=== PATIENT | female | born 1975 | race Caucasian/White ===

== ENCOUNTER → 2020-05-05 13:06 | Outpatient (CLI) | payer OTHER, SELFPAY ==
[2020-05-06 23:57] LABS: COVID19 Sendout Not Detected (Not Detect)
== END ==
PROVIDERS: Visit Provider Physician Assistant
DX: Z11.59 Encounter for screening for other viral diseases (principal)
CPT/HCPCS: 87635

== ENCOUNTER → 2021-01-17 09:36 | Outpatient (CLI) | payer OTHER, SELFPAY ==
--- NOTE | 2021-01-17 | DI.US.S_ITS ---
PROCEDURE: US ABDOMEN LIMITED INDICATIONS: ABD PAIN TECHNIQUE: Real-time focused scanning was performed of the abdomen, with image documentation. COMPARISON: None. FINDINGS: Liver is normal in size and echotexture. Gallbladder is sonographically normal. No gallstones. No gallbladder wall thickening. Gallbladder wall measures 1.0 millimeters. No pericholecystic fluid. No sonographic Cox sign. Biliary tree is nondilated. Common bile duct measures 5.7 millimeters. Head and body of the pancreas are sonographically normal. Tail is partially obscured by bowel gas. IMPRESSION: No sonographic abnormality identified. Dictated by: Osiris Huang MD, PhD on 01/17/2021 at 11:59 Approved by: Osiris Huang MD, PhD on 01/17/2021 at 12:00
== END ==
PROVIDERS: PCP Internal Medicine; Referring Provider Internal Medicine; Visit Provider Internal Medicine
DX: R10.9 Unspecified abdominal pain (principal)
CPT/HCPCS: 76705

== ENCOUNTER 2021-01-20 12:23 | Emergency (ER) | payer OTHER, SELFPAY ==
[2021-01-20 12:34] VITALS: BP 158/82; PULSE 81; RESP 14; TEMP 36.4; O2SAT 99
--- NOTE | 2021-01-20 12:40 | DI.RAD.S_ITS ---
PROCEDURE: XR CHEST 1V INDICATIONS: chest pain TECHNIQUE: One view of the chest was acquired. COMPARISON: None. FINDINGS: Surgical changes and devices: None. Lungs and pleura: Lungs are clear. No pleural effusions or pneumothorax. Mediastinum: Mediastinal contours appear normal. Heart size is normal. Bones and chest wall: No suspicious bony lesions. Overlying soft tissues appear unremarkable. IMPRESSION: Normal for age, source of current chest pain symptoms is not seen. Dictated by: Kenton Alvarez M.D. on 01/20/2021 at 13:47 Approved by: Kenton Alvarez M.D. on 01/20/2021 at 13:47
[2021-01-20 13:24] LABS: Add Manual Diff / Slide Review NO; Basophils Absolute Auto 0 /uL (0-100); Basophils Percent Auto 0.5 % (0-2); Eosinophils Absolute Auto 400 /uL (0-450); Eosinophils Percent Auto 6.4 % (2-4); Hematocrit 40.5 % (36-46); Hemoglobin 13.2 g/dL (12.0-16.0); Lymphocytes Absolute Auto 1500 /uL (1100-4500); Lymphocytes Percent Auto 26.2 % (25-40); Mean Corpuscular HGB Conc 32.7 % (30-36); Mean Corpuscular Hemoglobin 29.4 PG (26-34); Monocytes Absolute Auto 400 /uL (0-900); Monocytes Percent Auto 6.7 % (3-14); Neutrophils Absolute Auto 3400 /uL (1500-7000); Neutrophils Percent Auto 60.2 % (50-75); Platelet Count 323 X10^3/uL (150-400); White Blood Cell Count 5.7 X10^3/uL (4.5-11.0)
[2021-01-20 13:29] LABS: Alanine Aminotransferase 8 IU/L (<35); Albumin 4.8 g/dL (3.5-5.0); Albumin Globulin Ratio 1.5 (1.0-2.8); Alkaline Phosphatase 65 U/L (38-126); Aspartate Aminotransferase 28 IU/L (14-36); BUN Creatinine Ratio 20.5 (6-22); Bilirubin Total 0.6 mg/dL (0.2-1.3); Blood Urea Nitrogen 9 mg/dL (7-17); Carbon Dioxide 27 mmol/L (22-32); Chloride 104 mmol/L (98-107); Creatine Kinase 113 U/L (30-135); Estimated Glomerular Filt Rate > 60.0 mL/min (>60); Globulin 3.3 g/dL (1.7-4.1); Glucose 96 mg/dL (70-100); Lipase 73 U/L (23-300); Potassium 4.3 mmol/L (3.4-5.1); Sodium 140 mmol/L (137-145); Total Protein 8.1 g/dL (6.3-8.2)
[2021-01-20 13:41] LABS: Troponin I < 0.012 ng/mL (0.01-0.034)
[2021-01-20 13:45] LABS: CKMB % Relative Index 0.4 % (1.5-5.0); Creatine Kinase MB 0.49 ng/mL (<2.37); HEMOLYSIS 17 (0-50)
[2021-01-20 14:06] LABS: TSH w/ Reflex to FT4 0.56 uIU/mL (0.47-4.68)
--- NOTE | 2021-01-20 15:12 | ED.CHESTPAIN ---
HPI - Chest Pain General Chief Complaint: Chest Pain Stated Complaint: possible heart attack last night Time Seen by Provider: 01/20/21 15:04 Source: patient Mode of arrival: Wheelchair Limitations: no limitations History of Present Illness HPI narrative: Patient is a 45-year-old female with history of IBS, endometriosis presenting today with chest discomfort. She says it was actually quite bad last evening around 7:00 p.m.. She felt it was very tight. She took an antacid ibuprofen and Percocet it she said it eventually did help. However she was quite worried about this morning. She no longer has any chest discomfort. She denies any palpitations or shortness of breath. She does have a history of an abdominal hernia which she says was repaired. She has had intermittent abdominal discomfort which is being worked up as an outpatient. She recently had her right upper quadrant ultrasound under should not show any abnormality. She is not complaining of abdominal discomfort today. More concerned about her chest pain last night. She said she also had another episode few days ago when she picked up a 5 lb box. She has no known coronary artery disease, her uncle had an DE eye but other family members are healthy she is not a smoker and has no other risk factors Related Data Allergies Allergy/AdvReac Type Severity Reaction Status Date / Time No Known Drug Allergies Allergy Verified 01/20/21 12:40 Review of Systems Review of Systems Narrative: GENERAL: Denies chills, fatigue, malaise, fever, sweats, travel HEENT: Denies sinus pain, ear pain, sore throat, difficulty swallowing, neck pain RESPIRATORY: Denies dyspnea, cough, wheezing, hemoptysis, sputum. CARDIOVASCULAR: See HPI GASTROINTESTINAL: Denies nausea, vomiting, abdominal pain, diarrhea, constipation, melena. : Denies dysuria, frequency, incontinence, hematuria, urinary retention, flank pain. MUSCULOSKELETAL: Denies weakness, joint pain, or bony pain SKIN: No rash, no erythema, no pruritus NEUROLOGIC: Denies weakness, dizziness, headache, numbness, change in speech, confusion PSYCHIATRIC: No concerning psychosocial issues. 12 point review of systems is negative except for those stated above and HPI Patient History Social History Smoking Status: Never smoker Smoking Status: Never smoker alcohol intake frequency: a few times a month Substance Use Type: does not use Exam Initial Vital Signs Initial Vital Signs: Vital Signs Temperature 97.6 F 01/20/21 12:34 Pulse Rate 81 01/20/21 12:34 Respiratory Rate 14 01/20/21 12:34 Blood Pressure 158/82 H 01/20/21 12:34 Pulse Oximetry 99 01/20/21 12:34 GENERAL: Well-appearing, well-nourished and in no acute distress. HEENT: Head atraumatic,EOMI, pupils reactive, face symmetric, moist mucous membranes CARDIOVASCULAR: Regular rate and rhythm without murmurs, rubs or gallops. RESPIRATORY: Breath sounds equal bilaterally, no wheezes rales or rhonchi. ABDOMEN: Soft, nontender. Normoactive bowel sounds all 4 quadrants. No guarding or rebound : No CVA tenderness EXTREMITIES: Normal range of motion, no clubbing or edema. Neurovascularly intact NEUROLOGICAL: Alert and oriented x4.Normal gait and speech. SKIN: Warm, dry, no laceration, no petechiae, no rashes or lesions. Scores HEART Score Heart Score history: Slightly Suspicious Heart Score EKG: Normal Heart Score Age: 45-64 years old Heart Score risk factors: No known risk factors Heart Score troponin: < or = to normal limit Heart Score Total: 1 PERC Score Age greater than or equal to 50 years: No Heart rate greater than or equal to 100 bpm: No Room Air O2 Sat less than 95%: No Unilateral leg swelling: No Recent trauma or surgery: No Hemoptysis: No Prior PE or DVT: No Hormone Use: No Total PERC Score: 0 Course Orders Ordered: ED Orders 01/20/21 12:40 XR chest 1V Stat EKG-12 Lead Stat 01/20/21 13:00 Complete Blood Count AUTO DIFF Stat Comprehensive Metabolic Panel Stat Lipase Stat Magnesium Stat TSH w/ Reflex to FT4 Stat Troponin & CK Cardiac Panel Stat Vital Signs Vital signs: Vital Signs - 8 hr 01/20/21 12:34 01/20/21 15:33 Temperature 97.6 F Pulse Rate 81 78 Respiratory Rate 14 19 Blood Pressure 158/82 H 126/82 Pulse Oximetry 99 97 MDM - Chest Pain Lab Data Result diagrams: 01/20/21 13:00 01/20/21 13:00 Labs: Lab Results 01/20/21 01/20/21 01/20/21 Range/Units 13:00 13:00 13:00 WBC 5.7 (4.5-11.0) X10^3/uL RBC 4.50 (4.0-5.2) X10^6/uL Hgb 13.2 (12.0-16.0) g/dL Hct 40.5 (36-46) % MCV 90.0 (80-100) fL MCH 29.4 (26-34) PG MCHC 32.7 (30-36) % RDW 13.0 (11.6-14.8) % Plt Count 323 (150-400) X10^3/uL Neut % (Auto) 60.2 (50-75) % Lymph % (Auto) 26.2 (25-40) % [place] % (Auto) 6.7 (3-14) % Eos % (Auto) 6.4 H (2-4) % Baso % (Auto) 0.5 (0-2) % Neut # (Auto) 3400 (8971-1546) /uL Lymph # (Auto) 1500 (1488-9324) /uL [place] # (Auto) 400 (0-900) /uL Eos # (Auto) 400 (0-450) /uL Baso # (Auto) 0 (0-100) /uL Sodium 140 (137-145) mmol/L Potassium 4.3 (3.4-5.1) mmol/L Chloride 104 (98-107) mmol/L Carbon Dioxide 27 (22-32) mmol/L BUN 9 (7-17) mg/dL Creatinine 0.44 L (0.52-1.04) mg/dL Estimated GFR > 60.0 (>60) mL/min BUN/Creatinine Ratio 20.5 (6-22) Glucose 96 (70-100) mg/dL Calcium 10.0 (8.4-10.2) mg/dL Magnesium 2.0 (1.6-2.3) mg/dL Total Bilirubin 0.6 (0.2-1.3) mg/dL AST 28 (14-36) IU/L ALT 8 (<35) IU/L Alkaline Phosphatase 65 (38-126) U/L Total Creatine Kinase 113 (30-135) U/L CK-MB (CK-2) 0.49 (<2.37) ng/mL CK-MB (CK-2) Rel Index 0.4 L (1.5-5.0) % Troponin I < 0.012 (0.01-0.034) ng/mL Total Protein 8.1 (6.3-8.2) g/dL Albumin 4.8 (3.5-5.0) g/dL Globulin 3.3 (1.7-4.1) g/dL Albumin/Globulin Ratio 1.5 (1.0-2.8) Lipase 73 (23-300) U/L TSH (0.47-4.68) uIU/mL 01/20/21 Range/Units 13:00 WBC (4.5-11.0) X10^3/uL RBC (4.0-5.2) X10^6/uL Hgb (12.0-16.0) g/dL Hct (36-46) % MCV (80-100) fL MCH (26-34) PG MCHC (30-36) % RDW (11.6-14.8) % Plt Count (150-400) X10^3/uL Neut % (Auto) (50-75) % Lymph % (Auto) (25-40) % [place] % (Auto) (3-14) % Eos % (Auto) (2-4) % Baso % (Auto) (0-2) % Neut # (Auto) (3449-1098) /uL Lymph # (Auto) (7324-1077) /uL [place] # (Auto) (0-900) /uL Eos # (Auto) (0-450) /uL Baso # (Auto) (0-100) /uL Sodium (137-145) mmol/L Potassium (3.4-5.1) mmol/L Chloride (98-107) mmol/L Carbon Dioxide (22-32) mmol/L BUN (7-17) mg/dL Creatinine (0.52-1.04) mg/dL Estimated GFR (>60) mL/min BUN/Creatinine Ratio (6-22) Glucose (70-100) mg/dL Calcium (8.4-10.2) mg/dL Magnesium (1.6-2.3) mg/dL Total Bilirubin (0.2-1.3) mg/dL AST (14-36) IU/L ALT (<35) IU/L Alkaline Phosphatase (38-126) U/L Total Creatine Kinase (30-135) U/L CK-MB (CK-2) (<2.37) ng/mL CK-MB (CK-2) Rel Index (1.5-5.0) % Troponin I (0.01-0.034) ng/mL Total Protein (6.3-8.2) g/dL Albumin (3.5-5.0) g/dL Globulin (1.7-4.1) g/dL Albumin/Globulin Ratio (1.0-2.8) Lipase (23-300) U/L TSH 0.56 (0.47-4.68) uIU/mL Imaging Data Chest x-ray: Radiologist's Impression: PROCEDURE: XR CHEST 1V INDICATIONS: chest pain TECHNIQUE: One view of the chest was acquired. COMPARISON: None. FINDINGS: Surgical changes and devices: None. Lungs and pleura: Lungs are clear. No pleural effusions or pneumothorax. Mediastinum: Mediastinal contours appear normal. Heart size is normal. Bones and chest wall: No suspicious bony lesions. Overlying soft tissues appear unremarkable. IMPRESSION: Normal for age, source of current chest pain symptoms is not seen. Dictated by: Kenton Alvarez M.D. on 01/20/2021 at 13:47 ECG Data Interpretation: 67 p.r. interval 196 QRS [address] changes or T-wave inversions no priors to compare MDM Narrative Medical decision making narrative: Patient is very low risk cardiac disease she has had symptoms ongoing for more than 12 hours. Workup today is negative. However I recommend she discuss with her primary care provider if she needs any further workup and to return to the emergency department if symptoms are worsening. She verbally understands and agrees with this plan Discharge Plan Departure Patient Disposition: Home Clinical Impression: Atypical chest pain Instructions: DI for Atypical Chest Pain Activity Restrictions/Additional Instructions: *You have been diagnosed with atypical chest pain *What to do: At this time is unclear what exactly is causing her chest pain however you do not meet criteria to stay in the hospital. You may require further in evaluation such as stress test and/or echocardiogram. You may also require CT for your abdominal pain. However at this time I do not feel any hernia *Continue to take medications as directed *Follow up with your primary care provider in 2-3 days *Return to ER if you should have worsening chest discomfort, shortness of breath, palpitations dizziness or lightheadedness or any new, worsening or concerning symptoms Referrals: Sameer Navarro MD [Primary Care Provider] -
[2021-01-20 15:33] VITALS: BP 126/82; PULSE 78; RESP 19; O2SAT 97
== END 2021-01-20 15:34 | disposition home or self-care (01) ==
PROVIDERS: Emergency Medicine; Emergency Provider Emergency Medicine; PCP Internal Medicine
DX: R07.89 Other chest pain (principal)
CPT/HCPCS: 36415; 71045; 80053; 82550; 82553; 83690; 83735; 84443; 84484; 85025; 93005; 99284

== ENCOUNTER → 2021-06-04 10:02 | Outpatient (CLI) | payer OTHER, SELFPAY ==
[2021-06-04 12:01] LABS: COVID19 -Nasal RAPID Negative (Negative)
== END ==
PROVIDERS: PCP Internal Medicine; Visit Provider Physician Assistant
DX: Z01.812 Encounter for preprocedural laboratory examination (principal); Z20.822 Contact with and (suspected) exposure to COVID-19
CPT/HCPCS: 87635

== ENCOUNTER 2021-06-05 09:54 | Day surgery (SDC) | payer OTHER, SELFPAY ==
--- NOTE | 2021-06-05 | PATH_ITS ---
[facility] Accession Number: [id number] . 01 Material submitted: . PART A: duodenum - BIOPSY DUODENUM PART B: stomach - BIOPSY ANTRUM . 02 Diagnosis: A. Biopsy Duodenum: Duodenal mucosa with no diagnostic abnormality. Negative for active inflammation, features of sprue, dysplasia, or malignancy. . B. Biopsy Antrum: Portions of gastric antral mucosa with mild chronic inflammation. Negative for Helicobacter organisms by immunohistochemistry. Negative for intestinal metaplasia. Negative for dysplasia or malignancy. MRV 06/08/2021 1313 Local . 02 Electronically signed: . Clarissa Domingo MD, Pathologist NPI- [id number] . 01 Gross description: . A. Received in formalin, labeled duodenum consists of three boyd-pink fragments of soft tissue measuring 0.5 x 0.4 x 0.2 cm in aggregate. The specimen is entirely submitted in cassette A1. B. Received in formalin, labeled antrum consists of two boyd-pink fragments of soft tissue measuring 0.3 x 0.2 x 0.2 cm in aggregate. The specimen is entirely submitted in cassette B1. (EA:[id number]) /MRV 06/06/2021 1242 Local . 02 Microscopic: . B. An immunohistochemical stain was performed to evaluate for Helicobacter organisms and is negative. The control stain showed appropriate reactivity. . * This test was developed and its performance characteristics determined by [employer]. It has not been cleared or approved by the U.S. Food and Drug Administration. The FDA has determined that such clearance or approval is not necessary. This test is used for clinical purposes. It should not be regarded as investigational or for research. . 02 Pathologist provided ICD-10: R13.10, R11.0, R10.84 . 02 CPT . 343514, 308102, G63561 Performed at: 01 [facility] [address] [id number] MD Alan Yadav MD Phone: [phone] Performed at: 02 [facility] [address] [place], [place] [id number] MD Pascale Nicholson MD Phone: [phone]
[2021-06-05 10:08] VITALS: BP 101/67; PULSE 78; RESP 16; TEMP 36.7; O2SAT 96; BMI 20.3
[2021-06-05] MEDS: SODIUM CHLORIDE 0.9% 1,000 ML 84 ML IV (10:41)
--- NOTE | 2021-06-05 10:41 | SUR.PREOP ---
Patient states will call in to work and will not work this afternoon. Dr. Lyle will provide note for patient to take to her employment.
--- NOTE | 2021-06-05 11:14 | PM.HP.1 ---
History of Present Illness History of Present Illness Date Patient Seen: 06/05/21 Time Patient Seen: 11:14 Chief complaint: SDC Narrative: I reviewed my note from April 30, 2021 no changes. Patient History Family & Social History Social History: household members spouse Tobacco & Substance use: Smoking Status Never smoker alcohol intake frequency a few times a month Substance Use Type does not use Meds Home Medications and Allergies Home Medications Medication Instructions Recorded Confirmed Type cyclobenzaprine 5 mg tablet 5 mg PO PRN PRN 06/05/21 06/05/21 History ibuprofen 200 mg PO PRN PRN 06/05/21 06/05/21 History oxycodone-acetaminophen 10 mg-325 tab 06/05/21 History mg tablet Allergies Allergy/AdvReac Type Severity Reaction Status Date / Time No Known Drug Allergies Allergy Verified 06/05/21 10:36 Review of Systems Review of Systems ROS: Yes All systems reviewed with the patient and are negative except as otherwise documented Exam Vital Signs (past 8 hours): - 06/05/21 10:08 Temperature 98.0 F Pulse Rate 78 Respiratory Rate 16 Blood Pressure 101/67 Pulse Oximetry 96 Oxygen Delivery Method Room Air Const General: cooperative and comfortable Orientation: alert HENMT Head: normocephalic Ears: external ears normal Nose: external nose normal Face and sinus: normal facial exam Eyes General: appearance normal, both eyes and all related structures Neck Neck: normal visual inspection Chest Chest: normal inspection of the chest Resp Effort & Inspection: normal respiratory effort Cardio Rate: regular rate GI Inspection: normal to inspection Skin General: no rashes or lesions noted and No jaundice Neuro General: patient alert and moves all extremities Cognition: normal cognition Speech: speech normal Extrem General: normal to inspection Psych Appearance: grossly normal Assessment & Plan Assessment & Plan narrative: Epigastric pain nausea weight loss black stools and reflux. EGD is planned for today. Time Spent With Patient Critical Care time: I spent a total of [] minutes of critical care time on this patient's care today; this time is exclusive of procedural time.
--- NOTE | 2021-06-05 11:17 | PM.PREOP ---
Pre-operative Note COVID-19 COVID-19 status: Negative Result date/Date tested (Pos, Neg/Pending): 06/04/21 Interval Note History & Physical reviewed/Exam performed by Physician: Yes Changes to H&P: No ASA Class (for procedural sedation): II
--- NOTE | 2021-06-05 12:17 | P.OP.EGD_ITS ---
Operative Date/Time/Diagnoses Date of procedure: 06/05/21 Time of procedure: 12:17 Pre-op diagnosis: Epigastric pain nausea melena GERD Post-op diagnosis: same Procedure & Clinicians Study performed: EGD with biopsies Same procedure as scheduled: Yes Indications: Epigastric pain nausea melena GERD Surgeon: Rod Lyle Procedure Notes SCOAP/Timeout: Done Procedure in detail: After the risks and benefits were explained, written and verbal informed consent was obtained. The patient was brought into the procedure room and placed into the left lateral decubitus position. Please see nurse assisted living care manager notes for sedation details. The scope was introduced into the mouth through the bite block and advanced under direct visualization to the 2nd portion of the duodenum. The scope was slowly withdrawn carefully examining the mucosa for any defects or lesions. Retroflexed views were accomplished in the stomach. The stomach was decompressed, the scope was then removed from the patient who tolerated the procedure well. Sedation minutes: 10 Complications: none Impression: 1. Duodenum this was visually unremarkable from the bulb through the 2nd portion. However because the patient reported weight loss, we took random D2 biopsies 2. Stomach: Patient had streaky erythema in the antrum and biopsies were acquired for exclusion of Helicobacter pylori or other pathology. No ulcers no mass lesions no outlet obstruction. Retroflexed views of the LES were unremarkable. 3. Esophagus: The squamocolumnar junction correlated with the top of the gastric folds. GEJ was at about 41 cm from the incisors. Patient had LA grade A erosive esophagitis. The remainder of the esophagus was unremarkable. Endoscopic diagnosis 1. LA grade a erosive esophagitis 2. Gastropathy Post-procedure Plan for aftercare: 1. Await histopathology 2. Avoid NSAIDs. 3. Initiate [id number] omeprazole therapy. 4. Follow up GI clinic. Disposition: PACU
[2021-06-05 12:20] VITALS: BP 124/85; PULSE 89; RESP 20; TEMP 36.5; O2SAT 100
[2021-06-05 12:25] VITALS: BP 124/88; PULSE 81; RESP 13; O2SAT 100
[2021-06-05 12:30] VITALS: BP 124/88; PULSE 66; RESP 17; O2SAT 99
[2021-06-05 12:36] VITALS: BP 124/88; PULSE 64; RESP 20; O2SAT 99
== END 2021-06-05 12:58 | disposition home or self-care (01) ==
PROVIDERS: PCP Internal Medicine; Referring Provider Internal Medicine Gastroenterology; Visit Provider Internal Medicine Gastroenterology
PROC: 0DJ08ZZ Inspection of Upper Intestinal Tract, Via Natural or Artificial Opening Endoscopic (ICD-10-PCS; CPT 43235; principal; 2021-06-05 11:00)
DX: K21.00 Gastro-esophageal reflux disease with esophagitis, without bleeding (principal); K92.1 Melena; K31.9 Disease of stomach and duodenum, unspecified; K29.50 Unspecified chronic gastritis without bleeding
CPT/HCPCS: 43239; J2704

== ENCOUNTER → 2021-06-13 11:24 | Outpatient (CLI) | payer OTHER, SELFPAY ==
[2021-06-13 16:55] LABS: Follicle Stimulating Hormone 81.2 mIU/mL
[2021-06-13 19:04] LABS: Hep C Virus Ab w/Reflex Quant NEGATIVE s/c (NEGATIVE)
[2021-06-14 04:50] LABS: Hepatitis BE Antigen Negative (Negative)
[2021-06-14 11:09] LABS: RPR Screen Non Reactive (Non Reactive)
[2021-06-14 16:25] LABS: Candida species Negative (Negative); Gardnerella vaginalis Negative (Negative); Trichomoas vaginalis Negative (Negative)
== END ==
PROVIDERS: PCP Internal Medicine; Referring Provider Obstetrics & Gynecology; Visit Provider Obstetrics & Gynecology
DX: Z20.2 Contact with and (suspected) exposure to infections with a predominantly sexual mode of transmission (principal); N91.2 Amenorrhea, unspecified; B96.89 Other specified bacterial agents as the cause of diseases classified elsewhere; G89.29 Other chronic pain; N76.0 Acute vaginitis; R10.2 Pelvic and perineal pain; Z11.3 Encounter for screening for infections with a predominantly sexual mode of transmission
CPT/HCPCS: 36415; 83001; 86592; 86803; 87350; 87480; 87510; 87535; 87660

== ENCOUNTER → 2021-11-28 12:29 | Outpatient (CLI) | payer OTHER, SELFPAY ==
[2021-11-29 07:12] LABS: Candida species Negative (Negative); Gardnerella vaginalis Positive (Negative); Trichomoas vaginalis Negative (Negative)
== END ==
PROVIDERS: PCP Internal Medicine; Visit Provider Obstetrics & Gynecology
DX: N89.8 Other specified noninflammatory disorders of vagina (principal); R10.2 Pelvic and perineal pain
CPT/HCPCS: 87480; 87510; 87660

== ENCOUNTER 2023-03-06 17:02 | Emergency (ER) | payer OTHER, SELFPAY ==
[2023-03-06] VITALS (16 sets, daily range): BP systolic 85–144; BP diastolic 49–106; PULSE 85–160; RESP 26; TEMP 37; O2SAT 97–100; BMI 18.8
--- NOTE | 2023-03-06 17:20 | DI.CT.S_ITS ---
PROCEDURE: CT ABDOMEN PELVIS W CON INDICATIONS: abd pain TECHNIQUE: After the administration of intravenous contrast, axial sections acquired from the lung bases to the pubic symphysis. Coronal and sagittal reformats were performed. For radiation dose reduction, the following was used: automated exposure control, adjustment of mA and/or kV according to patient size. COMPARISON: None. FINDINGS: Image quality: Excellent. Lung bases: Unremarkable. Heart: No significant findings. ABDOMEN: Liver: Fluid attenuating hepatic cyst in segment 5/6. Additional subcentimeter hypoattenuating lesions, too small to characterize by CT. Gallbladder: Unremarkable. Biliary ducts: Unremarkable. Pancreas: Unremarkable. Spleen: Unremarkable. Adrenal Glands: Unremarkable. Kidneys and Ureters: Unremarkable. Stomach and Bowel: Stomach, small bowel loops, and colon are unremarkable. Normal appendix. Peritoneum: No abnormal intraperitoneal fluid. No free air. Ventral Wall: No hernias. Abdominal Nodes: No retroperitoneal or mesenteric adenopathy by size criteria. Vessels: Aorta and inferior vena cava are normal in size. Dilated left gonadal vasculature PELVIS: Pelvic Organs: Unremarkable. Bladder: Unremarkable. Pelvic Nodes: No enlarged lymph nodes. Miscellaneous: No hernias are seen. Bones: Unremarkable. IMPRESSION: Dilated left gonadal vasculature, which can be seen in the setting of pelvic congestion syndrome. Otherwise, no acute abnormality. Dictated by: Colten Sheffield M.D. on 03/06/2023 at 17:52 Approved by: Colten Sheffield M.D. on 03/06/2023 at 17:56
--- NOTE | 2023-03-06 17:21 | ED.ABDPAIN ---
HPI - Abdominal Pain <Brittney Cleary DO - Last Filed: 03/07/23 09:51> General Chief Complaint: Abdominal Pain Stated Complaint: abd pain, tastes blood Time Seen by Provider: 03/06/23 17:20 Source: patient and family Mode of arrival: Wheelchair History of Present Illness HPI narrative: This is a 47-year-old female with no reported medical issues. Patient states she is had some abdominal pain on and off for several weeks she started having vomiting several days ago. She would significant increase of pain today and comes in quite distress. Patient states she had diarrhea 3 days ago it stopped she denies any bowel movements since then. Unclear if she is had any flatus. She denies urinary symptoms. She states it in the front and it feels like something is rupturing or once to bust. Patient and her states she has not had pain like this before. She sometimes takes muscle relaxer and oxycodone but denies any other regular daily prescriptions. Patient and state she had a hernia mesh repair in the past denies other surgeries. Denies tobacco, alcohol or illicit. Patient states she stopped getting periods couple years ago. Related Data Home Medications Medication Instructions Recorded Confirmed cyclobenzaprine 5 mg tablet 5 mg PO PRN PRN right side pain 06/05/21 06/13/21 ibuprofen 200 mg PO PRN PRN right side pain 06/05/21 06/05/21 oxycodone-acetaminophen 10 mg-325 tab 06/05/21 06/13/21 mg tablet dronabinol 5 mg capsule 5 mg PO BEDTIME 06/13/21 06/13/21 Previous Rx's Medication Instructions Recorded metronidazole 0.75 % (37.5 mg/5 1 appful vaginal BEDTIME 5 days 11/28/21 gram) vaginal gel #70 grams dicyclomine 10 mg capsule 10 mg PO BID PRN abdominal pain 03/06/23 #14 caps metronidazole 500 mg tablet 500 mg PO BID 7 days #14 tabs 03/06/23 Allergies Allergy/AdvReac Type Severity Reaction Status Date / Time rofecoxib [From Vioxx] AdvReac Intermediate Confusion Verified 03/06/23 17:21 Review of Systems <DO Pasquale Juan Last Filed: 03/07/23 09:51> Review of Systems ROS Unobtainable: All systems reviewed & are unremarkable except as noted in HPI and below Patient History <Brittney Cleary DO - Last Filed: 03/07/23 09:51> Medical History Bacterial vaginosis Colon polyps (~2005) Cubital tunnel syndrome Endometriosis Fibroids Fibromyalgia GERD (gastroesophageal reflux disease) Headache Irregular menstrual cycle Migraines Ovarian cyst Painful menstrual periods Vertigo Surgical History Anesthesia History of section (~2009) Family History Father Cancer Mother Cancer Diabetes mellitus Hypertension Sister Colon polyps History of IBS Grandmother Ovarian cancer Social History household members: spouse Smoking Status: Never smoker Smoking Status: Never smoker alcohol intake frequency: a few times a month Substance Use Type: does not use Exam <Brittney Cleary DO - Last Filed: 03/07/23 09:51> Narrative Exam Narrative: GENERAL: Alert and oriented x three, female in distress. Patient is sweaty and quite agitated. HEENT: Head normocephalic, atraumatic, EOMI, pupils reactive, face symmetric, moist mucous membranes NECK: Supple, full range of motion CARDIOVASCULAR: Tachycardic but regular rate and rhythm without murmurs, rubs or gallops. RESPIRATORY: Breath sounds equal bilaterally, no wheezes rales or rhonchi. ABDOMEN: Soft, nondistended. Generalized tenderness. Hyperactive bowel sounds all 4 quadrants. No guarding or rebound, rigidity, no mass : No CVA tenderness EXTREMITIES: Normal range of motion, no clubbing or edema. Neurovascularly intact NEUROLOGICAL: Cranial nerves II through XII grossly intact. Moving all extremities SKIN: Warm, dry, no petechiae, no rashes or lesions. Initial Vital Signs Initial Vital Signs: Vital Signs Temperature 98.6 F 03/06/23 17:05 Pulse Rate 160 H 03/06/23 17:05 Respiratory Rate 26 H 03/06/23 17:05 Blood Pressure 144/106 H 03/06/23 17:05 Pulse Oximetry 100 03/06/23 17:05 Oxygen Delivery Method Room Air 03/06/23 17:05 <Ld Ballard DO - Last Filed: 03/06/23 23:03> Initial Vital Signs Initial Vital Signs: Vital Signs Temperature 98.6 F 03/06/23 17:05 Pulse Rate 160 H 03/06/23 17:05 Respiratory Rate 26 H 03/06/23 17:05 Blood Pressure 144/106 H 03/06/23 17:05 Pulse Oximetry 100 03/06/23 17:05 Oxygen Delivery Method Room Air 03/06/23 17:05 Course <Brittney Cleary DO - Last Filed: 03/07/23 09:51> Orders Ordered: Discontinued Medications Hydromorphone HCl (Hydromorphone 1 Mg Inj) 1 mg IV NOW ONE Stop: 03/06/23 17:51 Last Admin: 03/06/23 17:54 Dose: 1 mg Documented By: CRISTIAN Hydromorphone HCl (Hydromorphone 1 Mg Inj) 1 mg IV NOW ONE Stop: 03/06/23 18:29 Last Admin: 03/06/23 18:52 Dose: 1 mg Documented By: LUCILA Sodium Chloride (Normal Saline 0.9%) 1,000 mls @ 1,000 mls/hr IV BOLUS ONE Stop: 03/06/23 18:19 Last Admin: 03/06/23 17:50 Dose: Not Given Documented By: CRISTIAN Sodium Chloride (Normal Saline 0.9%) 1,000 mls @ 1,000 mls/hr IV BOLUS ONE Stop: 03/06/23 18:19 Last Infusion: 03/06/23 20:44 Dose: 0 mls/hr Documented By: Admin: 03/06/23 17:26 Dose: 1,000 mls/hr Documented By: CRISTIAN Metronidazole (Metronidazole 500 Mg Tablet) 500 mg PO NOW ONE Stop: 03/06/23 22:08 Last Admin: 03/06/23 22:23 Dose: 500 mg Documented By: JAMAAL Morphine Sulfate (Morphine 4 Mg/Ml Inj) 4 mg IV NOW ONE Stop: 03/06/23 17:21 Last Admin: 03/06/23 17:27 Dose: 4 mg Documented By: CRISTIAN Morphine Sulfate (Morphine 4 Mg/Ml Inj) 4 mg IV NOW ONE Stop: 03/06/23 17:46 Last Admin: 03/06/23 17:50 Dose: Not Given Documented By: KB Ondansetron HCl (Ondansetron 4 Mg/2 Ml Inj) 4 mg IV NOW ONE Stop: 03/06/23 17:21 Last Admin: 03/06/23 17:26 Dose: 4 mg Documented By: CRISTIAN Ondansetron HCl (Ondansetron 4 Mg/2 Ml Inj) 4 mg IV NOW ONE Stop: 03/06/23 20:07 Vital Signs Vital signs: Vital Signs - 8 hr 03/06/23 17:05 03/06/23 17:59 03/06/23 18:00 Temperature 98.6 F Pulse Rate 160 H Respiratory Rate 26 H Blood Pressure 144/106 H Pulse Oximetry 100 99 99 Oxygen Delivery Method Room Air 03/06/23 18:56 03/06/23 18:57 03/06/23 18:57 Temperature Pulse Rate 93 H Respiratory Rate Blood Pressure 85/51 L Pulse Oximetry 97 100 Oxygen Delivery Method 03/06/23 19:00 03/06/23 19:00 03/06/23 19:09 Temperature Pulse Rate 96 H 85 Respiratory Rate Blood Pressure 88/49 L Pulse Oximetry 100 100 Oxygen Delivery Method 03/06/23 19:09 03/06/23 19:30 03/06/23 19:30 Temperature Pulse Rate 87 Respiratory Rate Blood Pressure 113/74 113/74 Pulse Oximetry 98 Oxygen Delivery Method 03/06/23 20:02 03/06/23 20:31 03/06/23 20:32 Temperature Pulse Rate 95 H Respiratory Rate Blood Pressure 107/71 Pulse Oximetry 98 98 Oxygen Delivery Method 03/06/23 20:32 03/06/23 21:00 03/06/23 21:00 Temperature Pulse Rate 96 H 99 H Respiratory Rate Blood Pressure 115/76 Pulse Oximetry 100 100 Oxygen Delivery Method 03/06/23 21:30 03/06/23 21:30 03/06/23 22:00 Temperature Pulse Rate 100 H 104 H Respiratory Rate Blood Pressure 101/60 Pulse Oximetry 98 99 Oxygen Delivery Method 03/06/23 22:01 03/06/23 22:01 03/06/23 22:30 Temperature Pulse Rate 96 H Respiratory Rate Blood Pressure 114/71 121/76 Pulse Oximetry 99 Oxygen Delivery Method 03/06/23 22:30 Temperature Pulse Rate 98 H Respiratory Rate Blood Pressure Pulse Oximetry 99 Oxygen Delivery Method <Ld Lanker, DO - Last Filed: 03/06/23 23:03> Orders Ordered: Discontinued Medications Hydromorphone HCl (Hydromorphone 1 Mg Inj) 1 mg IV NOW ONE Stop: 03/06/23 17:51 Last Admin: 03/06/23 17:54 Dose: 1 mg Documented By: CRISTIAN Hydromorphone HCl (Hydromorphone 1 Mg Inj) 1 mg IV NOW ONE Stop: 03/06/23 18:29 Last Admin: 03/06/23 18:52 Dose: 1 mg Documented By: LUCILA Sodium Chloride (Normal Saline 0.9%) 1,000 mls @ 1,000 mls/hr IV BOLUS ONE Stop: 03/06/23 18:19 Last Admin: 03/06/23 17:50 Dose: Not Given Documented By: CRISTIAN Sodium Chloride (Normal Saline 0.9%) 1,000 mls @ 1,000 mls/hr IV BOLUS ONE Stop: 03/06/23 18:19 Last Infusion: 03/06/23 20:44 Dose: 0 mls/hr Documented By: Admin: 03/06/23 17:26 Dose: 1,000 mls/hr Documented By: CRISTIAN Metronidazole (Metronidazole 500 Mg Tablet) 500 mg PO NOW ONE Stop: 03/06/23 22:08 Last Admin: 03/06/23 22:23 Dose: 500 mg Documented By: JAMAAL Morphine Sulfate (Morphine 4 Mg/Ml Inj) 4 mg IV NOW ONE Stop: 03/06/23 17:21 Last Admin: 03/06/23 17:27 Dose: 4 mg Documented By: CRISTIAN Morphine Sulfate (Morphine 4 Mg/Ml Inj) 4 mg IV NOW ONE Stop: 03/06/23 17:46 Last Admin: 03/06/23 17:50 Dose: Not Given Documented By: CRISTIAN Ondansetron HCl (Ondansetron 4 Mg/2 Ml Inj) 4 mg IV NOW ONE Stop: 03/06/23 17:21 Last Admin: 03/06/23 17:26 Dose: 4 mg Documented By: CRISTIAN Ondansetron HCl (Ondansetron 4 Mg/2 Ml Inj) 4 mg IV NOW ONE Stop: 03/06/23 20:07 Vital Signs Vital signs: Vital Signs - 8 hr 03/06/23 17:05 03/06/23 17:59 03/06/23 18:00 Temperature 98.6 F Pulse Rate 160 H Respiratory Rate 26 H Blood Pressure 144/106 H Pulse Oximetry 100 99 99 Oxygen Delivery Method Room Air 03/06/23 18:56 03/06/23 18:57 03/06/23 18:57 Temperature Pulse Rate 93 H Respiratory Rate Blood Pressure 85/51 L Pulse Oximetry 97 100 Oxygen Delivery Method 03/06/23 19:00 03/06/23 19:00 03/06/23 19:09 Temperature Pulse Rate 96 H 85 Respiratory Rate Blood Pressure 88/49 L Pulse Oximetry 100 100 Oxygen Delivery Method 03/06/23 19:09 03/06/23 19:30 03/06/23 19:30 Temperature Pulse Rate 87 Respiratory Rate Blood Pressure 113/74 113/74 Pulse Oximetry 98 Oxygen Delivery Method 03/06/23 20:02 03/06/23 20:31 03/06/23 20:32 Temperature Pulse Rate 95 H Respiratory Rate Blood Pressure 107/71 Pulse Oximetry 98 98 Oxygen Delivery Method 03/06/23 20:32 03/06/23 21:00 03/06/23 21:00 Temperature Pulse Rate 96 H 99 H Respiratory Rate Blood Pressure 115/76 Pulse Oximetry 100 100 Oxygen Delivery Method 03/06/23 21:30 03/06/23 21:30 03/06/23 22:00 Temperature Pulse Rate 100 H 104 H Respiratory Rate Blood Pressure 101/60 Pulse Oximetry 98 99 Oxygen Delivery Method 03/06/23 22:01 03/06/23 22:01 03/06/23 22:30 Temperature Pulse Rate 96 H Respiratory Rate Blood Pressure 114/71 121/76 Pulse Oximetry 99 Oxygen Delivery Method 03/06/23 22:30 Temperature Pulse Rate 98 H Respiratory Rate Blood Pressure Pulse Oximetry 99 Oxygen Delivery Method MDM - Abdominal Pain <Brittney Cleary, DO - Last Filed: 03/07/23 09:51> Lab Data 03/06/23 17:11 03/06/23 17:11 Labs: Lab Results 03/06/23 03/06/23 03/06/23 Range/Units 17:11 17:11 17:11 WBC 8.9 (4.5-11.0) X10^3/uL RBC 4.89 (4.0-5.2) X10^6/uL Hgb 14.3 (12.0-16.0) g/dL Hct 42.1 (36-46) % MCV 86.0 (80-100) fL MCH 29.3 (26-34) PG MCHC 34.0 (30-36) % RDW 12.8 (11.6-14.8) % Plt Count 330 (150-400) X10^3/uL Neut % (Auto) 58.9 (50-75) % Lymph % (Auto) 33.7 (25-40) % [place] % (Auto) 4.5 (3-14) % Eos % (Auto) 2.1 (2-4) % Baso % (Auto) 0.8 (0-2) % Neut # (Auto) 5200 (3123-3296) /uL Lymph # (Auto) 3000 (5178-0622) /uL [place] # (Auto) 400 (0-900) /uL Eos # (Auto) 200 (0-450) /uL Baso # (Auto) 100 (0-100) /uL Sodium 139 (137-145) mmol/L Potassium 3.8 (3.4-5.1) mmol/L Chloride 101 (98-107) mmol/L Carbon Dioxide 22 (22-32) mmol/L BUN 12 (7-17) mg/dL Creatinine 0.58 (0.52-1.04) mg/dL Estimated GFR > 60 (>60) mL/min BUN/Creatinine Ratio 20.7 (6-22) Glucose 100 (70-100) mg/dL Lactate (0.7-2.1) mmol/L Calcium 10.5 H (8.4-10.2) mg/dL Total Bilirubin 0.8 (0.2-1.3) mg/dL AST 29 (14-36) IU/L ALT 13 (<35) IU/L Alkaline Phosphatase 75 (38-126) U/L Ammonia < 9 L (9-30) umol/L Total Protein 9.1 H (6.3-8.2) g/dL Albumin 5.3 H (3.5-5.0) g/dL Globulin 3.8 (1.7-4.1) g/dL Albumin/Globulin Ratio 1.4 (1.0-2.8) Lipase 76 (23-300) U/L Serum , Qual (Negative) Ur Chlamydia DNA (PCR) N gonorrhoeae DNA (PCR) 03/06/23 03/06/23 03/06/23 Range/Units 17:11 17:11 19:22 WBC (4.5-11.0) X10^3/uL RBC (4.0-5.2) X10^6/uL Hgb (12.0-16.0) g/dL Hct (36-46) % MCV (80-100) fL MCH (26-34) PG MCHC (30-36) % RDW (11.6-14.8) % Plt Count (150-400) X10^3/uL Neut % (Auto) (50-75) % Lymph % (Auto) (25-40) % [place] % (Auto) (3-14) % Eos % (Auto) (2-4) % Baso % (Auto) (0-2) % Neut # (Auto) (1699-6549) /uL Lymph # (Auto) (0803-2810) /uL [place] # (Auto) (0-900) /uL Eos # (Auto) (0-450) /uL Baso # (Auto) (0-100) /uL Sodium (137-145) mmol/L Potassium (3.4-5.1) mmol/L Chloride (98-107) mmol/L Carbon Dioxide (22-32) mmol/L BUN (7-17) mg/dL Creatinine (0.52-1.04) mg/dL Estimated GFR (>60) mL/min BUN/Creatinine Ratio (6-22) Glucose (70-100) mg/dL Lactate 2.9 H (0.7-2.1) mmol/L Calcium (8.4-10.2) mg/dL Total Bilirubin (0.2-1.3) mg/dL AST (14-36) IU/L ALT (<35) IU/L Alkaline Phosphatase (38-126) U/L Ammonia (9-30) umol/L Total Protein (6.3-8.2) g/dL Albumin (3.5-5.0) g/dL Globulin (1.7-4.1) g/dL Albumin/Globulin Ratio (1.0-2.8) Lipase (23-300) U/L Serum , Qual Negative (Negative) Ur Chlamydia DNA (PCR) Cancelled N gonorrhoeae DNA (PCR) Cancelled 03/06/23 Range/Units 19:25 WBC (4.5-11.0) X10^3/uL RBC (4.0-5.2) X10^6/uL Hgb (12.0-16.0) g/dL Hct (36-46) % MCV (80-100) fL MCH (26-34) PG MCHC (30-36) % RDW (11.6-14.8) % Plt Count (150-400) X10^3/uL Neut % (Auto) (50-75) % Lymph % (Auto) (25-40) % [place] % (Auto) (3-14) % Eos % (Auto) (2-4) % Baso % (Auto) (0-2) % Neut # (Auto) (6803-3871) /uL Lymph # (Auto) (6356-1293) /uL [place] # (Auto) (0-900) /uL Eos # (Auto) (0-450) /uL Baso # (Auto) (0-100) /uL Sodium (137-145) mmol/L Potassium (3.4-5.1) mmol/L Chloride (98-107) mmol/L Carbon Dioxide (22-32) mmol/L BUN (7-17) mg/dL Creatinine (0.52-1.04) mg/dL Estimated GFR (>60) mL/min BUN/Creatinine Ratio (6-22) Glucose (70-100) mg/dL Lactate 1.2 (0.7-2.1) mmol/L Calcium (8.4-10.2) mg/dL Total Bilirubin (0.2-1.3) mg/dL AST (14-36) IU/L ALT (<35) IU/L Alkaline Phosphatase (38-126) U/L Ammonia (9-30) umol/L Total Protein (6.3-8.2) g/dL Albumin (3.5-5.0) g/dL Globulin (1.7-4.1) g/dL Albumin/Globulin Ratio (1.0-2.8) Lipase (23-300) U/L Serum , Qual (Negative) Ur Chlamydia DNA (PCR) N gonorrhoeae DNA (PCR) Point of care testing: Urine Dip Bedside Urine Glucose Negative Bedside Urine Bilirubin - Negative Bedside Urine Ketone ++ 40 Urine Specific [place] 1.000 Bedside Urine Occult Blood - Negative Bedside Urine pH 8.0 Bedside Urine Protein - Negative Bedside Urine Urobilinogen - Negative Bedside Urine Nitrite - Negative Bedside Urine Leukocytes - Negative Esterase Imaging Data CT scan - abdomen/pelvis: Radiologist's Impression: [address] [id number] Scan ReportSigned Patient: Jodie Greene#: [id number]: 1975Acct:[id number]/Sex: 47 / FDate of Service: 03/06/23Loc: EDAccession Number: [id number]? ? Procedure: CT abdomen pelvis w con Ordering Provider: Brittney Cleary D.O. PROCEDURE:? CT ABDOMEN PELVIS W CON ? INDICATIONS:? abd pain ? TECHNIQUE:? After the administration of intravenous contrast, axial sections acquired from the lung bases to the pubic symphysis.? Coronal and sagittal reformats were performed.? For radiation dose reduction, the following was used:? automated exposure control, adjustment of mA and/or kV according to patient size.? ? COMPARISON:? None. ? FINDINGS:? Image quality:? Excellent.? ? Lung bases:? Unremarkable. Heart:? No significant findings. ? ABDOMEN: Liver:? Fluid attenuating hepatic cyst in segment 5/6.? Additional subcentimeter hypoattenuating lesions, too small to characterize by CT. Gallbladder:? Unremarkable.? ? Biliary ducts:? Unremarkable.? ? Pancreas:? Unremarkable.? ? Spleen:? Unremarkable.? ? Adrenal Glands:? Unremarkable.? ? Kidneys and Ureters:? Unremarkable.? ? ? Stomach and Bowel:? Stomach, small bowel loops, and colon are unremarkable.? Normal appendix.? Peritoneum:? No abnormal intraperitoneal fluid.? No free air.? ? Ventral Wall:? ?No hernias.? Abdominal Nodes:? No retroperitoneal or mesenteric adenopathy by size criteria.? Vessels:? Aorta and inferior vena cava are normal in size.? Dilated left gonadal vasculature ? PELVIS: Pelvic Organs:? Unremarkable.? ? Bladder:? Unremarkable.? ? Pelvic Nodes: No enlarged lymph nodes.? Miscellaneous: No hernias are seen.? Bones:? Unremarkable.? IMPRESSION:? Dilated left gonadal vasculature, which can be seen in the setting of pelvic congestion syndrome. ? Otherwise, no acute abnormality.? ? ? Dictated by: Colten Sheffield M.D. on 03/06/2023 at 17:52? ?? Approved by: Colten Sheffield M.D. on 03/06/2023 at 17:56?? CTA: Radiologist's Impression: [address] [address] [address] Scan Report Signed Patient: Clarisa Greene MR#: [id number] : 1975 Acct:[id number] Age/Sex: 47 / F Date of Service: 03/06/23 Loc: ED Accession Number: [id number] ?? Procedure: CT angio chest abdomen pelvis Ordering Provider: Brittney Cleary D.O. PROCEDURE:? CT ANGIO CHEST ABDOMEN PELVIS ? INDICATIONS:? dissection protocol ? TECHNIQUE:? Precontrast 5 mm thick sections acquired from the lung apices to the iliac crests.? After the administration of intravenous contrast, 2.5 mm thick sections again acquired from the lung apices to the iliac crests.? Maximum intensity projection (MIP) oblique sagittal and coronal reformats were then acquired.? For radiation dose reduction, the following was used:? automated exposure control.? ? COMPARISON:? [facility], CT, CT ABDOMEN PELVIS W CON, 03/06/2023, 17:33. ? FINDINGS:? Image quality:? Excellent.? ? AORTA:? No acute aortic syndrome or aneurysm. ? CHEST:? Lungs and pleura:? No acute airspace opacities.? No pleural effusions or pneumothorax.? Central and peripheral airways are patent and normal in caliber.? 4 mm solid nodule in the lateral left upper lobe (series 6, image 176) ? Mediastinum:? Heart size is normal.? No pericardial effusion.? No mediastinal or hilar adenopathy by size criteria.? Central pulmonary arteries are normal in size.? Esophagus is normal in caliber.? No hiatal hernias.? ? Bones and chest wall:? No axillary adenopathy by size criteria.? Thyroid gland is unremarkable .? No suspicious bony lesions.? No vertebral body compression fractures.? ? ? ABDOMEN:? Vasculature:? Celiac trunk and mesenteric arteries are patent.? Renal arteries are also patent.? Dilated left gonadal vasculature. ? Solid organs:? Liver is normal in size and enhancement.? Gallbladder is unremarkable .? Biliary system is non dilated.? Pancreas enhances normally.? Spleen is normal in size and enhancement.? No adrenal nodules.? Both kidneys are normal in size and enhancement, without hydronephrosis.? ? Peritoneum and bowel:? No free fluid or air.? Bowel loops are normal in caliber and wall thickness.? ? Nodes and vessels:? No retroperitoneal or mesenteric adenopathy by size criteria.? Inferior vena cava is normal in morphology.? ? Miscellaneous:? No ventral hernias.? ? ? PELVIS:? Genitourinary:? Bladder wall thickness is normal.? ? Miscellaneous:? No inguinal hernias or adenopathy.? No ventral hernias.? ? Bones:? No suspicious bony lesions.? No vertebral body compression fractures.? L5 pars defect. ? ? IMPRESSION:? No evidence acute aortic syndrome. ? 4 mm solid nodule in the lateral left upper lobe. Consider 12 month follow-up if at high risk for developing lung cancer, per Fleischner Society guidelines. ? Dilated left gonadal vasculature, which can be seen in the setting of the clinical pelvic congestion syndrome. ? Dictated by: Colten Sheffield M.D. on 03/06/2023 at 18:43 ? ? Approved by: Colten Sheffield M.D. on 03/06/2023 at 18:47?? US - COUNTER ROLLER: Radiologist's Impression: Close Pelvis Ultrasound (Signed) Colten Sheffield - 03/06/23 Chest/Abdomen/Pelvis CTA (Signed) Colten Sheffield - 03/06/23 Abdomen/Pelvis CT (Signed) Colten Sheffield - 03/06/23 DI Result 12/05/21 Chest X-Ray (Signed) Kenton Alvarez - 01/20/21 Abdomen Ultrasound (Signed) Osiris Huang - 01/17/21 Launch?[address] [address] Ultrasound Report Signed Patient: Clarisa Greene MR#: [id number] : 1975 Acct:[id number] Age/Sex: 47 / F Date of Service: 03/06/23 Loc: ED Accession Number: [id number] ?? Procedure: US pelvic complete Ordering Provider: Brittney Cleary D.O. PROCEDURE:? US PELVIC COMPLETE ? INDICATIONS:? PELVIC PAIN ? TECHNIQUE:? Real-time scanning was performed of the pelvic organs, with image documentation.? Additional endovaginal scanning was necessary due to incomplete visualization of the adnexal and endometrial structures by transabdominal scanning.? ? COMPARISON:? None. ? FINDINGS:? ?? Uterus:? Uterus is anteverted and normal in size at 6.9 x 3.1 x 3.7 cm. The myometrium is heterogeneous. ? The endometrium measures 5 mm combined thickness.? Intramural fibroid along the midline, posterior margin measuring 9 mm. ? Ovaries:? The right ovary measures 2.3 x 1.2 x 1.2 cm, with a calculated ovarian volume of 1.8 cc. The left ovary measures 1.7 x 1.1 x 1.5 cm, with a calculated ovarian volume of 1.5 cc. The ovaries have a normal sonographic appearance. Less than 12 follicles can be seen in each ovary.? No adnexal masses are seen. ? Other:? No pathologic free abdominal or pelvic fluid. ? ? IMPRESSION:? Intramural fibroid measuring 9 mm, otherwise unremarkable pelvic ultrasound. ? We strive to produce accurate, complete, and clear reports of imaging services. To assist us in improving patient care, this report was composed using standard report templates and voice recognition software. Therefore, it may contain abnormal punctuation, insertions and/or omissions. Occasional wrong-word or sound-alike substitutions may occur. Though we review the report and make efforts to correct it, we do recommend that the report be read carefully in proper context to recognize any text inaccuracies. ? ? Dictated by: Colten Sheffield M.D. on 03/06/2023 at 18:56 ? ? Approved by: Colten Sheffield M.D. on 03/06/2023 at 18:58?? MDM Narrative Medical decision making narrative: 47-year-old female with significant abdominal pain on examination describes some recent chronic abdominal discomfort, patient has a prior history of VELASQUEZ. She describes something is going to explode. She is diaphoretic, tachycardic, not hypotensive but very painful. He really reproduce her pain on examination. Labs including lactate were included, CT abdomen pelvis showed maybe some pelvic congestion, patient was sent back for CT angio which does not show any acute vascular changes, once again notes pelvic congestion, pulmonary nodule. Patient did note she has had large ovarian cysts in the past after re-evaluation after several doses of pain medication and pelvic ultrasound was ordered does not show any acute change. Flow is not mentioned reaching out to radiology, spoke with Dr. Colten Sheffield, there is good flow. You read all [address], angio and pelvic ultrasound. There is intramural fibroid. Patient is much improved after fluids and some pain medication. She noted some discharge had patient self swab, waiting urine sample and repeat lactate. Swab positive for BV. Gonorrhea chlamydia pending. Patient case was discussed with Dr. Ballard majority of workup has not shown any acute changes that would clearly show cause for her significant pain. Plan to observe for somewhat longer waiting for her last lab to result. Patient signed out to Dr. Ballard while awaiting results. Dr Ballard: Received turned over. Review patient's history and physical and workup up to this part. Her ultrasound shows signs of pelvic congestion but no signs of ovarian torsion. CT scan shows no acute pathology. She does have a uterine fibroid. Her pelvic cultures do show clue cells which would be consistent with bacterial vaginosis. Patient does have a history of endometriosis. All these could potentially be the source of her abdominal pain although we do admit that her pain today seemed to be out of proportion to these types of diagnoses. There was no signs of ischemic bowel. After extended period of observation here in the ER patient states her pain has greatly improved but not completely resolved. She was given a dose of Flagyl to treat the bacterial vaginosis and a prescription was sent to the pharmacy of her choice. Advised that she talk with her nutrition educator and also her GI doctor and she was given return precautions. She expressed understanding and agreement. <Ld Ballard, DO - Last Filed: 03/06/23 23:03> Lab Data Labs: Lab Results 03/06/23 03/06/23 03/06/23 Range/Units 17:11 17:11 17:11 WBC 8.9 (4.5-11.0) X10^3/uL RBC 4.89 (4.0-5.2) X10^6/uL Hgb 14.3 (12.0-16.0) g/dL Hct 42.1 (36-46) % MCV 86.0 (80-100) fL MCH 29.3 (26-34) PG MCHC 34.0 (30-36) % RDW 12.8 (11.6-14.8) % Plt Count 330 (150-400) X10^3/uL Neut % (Auto) 58.9 (50-75) % Lymph % (Auto) 33.7 (25-40) % [place] % (Auto) 4.5 (3-14) % Eos % (Auto) 2.1 (2-4) % Baso % (Auto) 0.8 (0-2) % Neut # (Auto) 5200 (7651-7015) /uL Lymph # (Auto) 3000 (5265-6540) /uL [place] # (Auto) 400 (0-900) /uL Eos # (Auto) 200 (0-450) /uL Baso # (Auto) 100 (0-100) /uL Sodium 139 (137-145) mmol/L Potassium 3.8 (3.4-5.1) mmol/L Chloride 101 (98-107) mmol/L Carbon Dioxide 22 (22-32) mmol/L BUN 12 (7-17) mg/dL Creatinine 0.58 (0.52-1.04) mg/dL Estimated GFR > 60 (>60) mL/min BUN/Creatinine Ratio 20.7 (6-22) Glucose 100 (70-100) mg/dL Lactate (0.7-2.1) mmol/L Calcium 10.5 H (8.4-10.2) mg/dL Total Bilirubin 0.8 (0.2-1.3) mg/dL AST 29 (14-36) IU/L ALT 13 (<35) IU/L Alkaline Phosphatase 75 (38-126) U/L Ammonia < 9 L (9-30) umol/L Total Protein 9.1 H (6.3-8.2) g/dL Albumin 5.3 H (3.5-5.0) g/dL Globulin 3.8 (1.7-4.1) g/dL Albumin/Globulin Ratio 1.4 (1.0-2.8) Lipase 76 (23-300) U/L Serum , Qual (Negative) Ur Chlamydia DNA (PCR) N gonorrhoeae DNA (PCR) 03/06/23 03/06/23 03/06/23 Range/Units 17:11 17:11 19:22 WBC (4.5-11.0) X10^3/uL RBC (4.0-5.2) X10^6/uL Hgb (12.0-16.0) g/dL Hct (36-46) % MCV (80-100) fL MCH (26-34) PG MCHC (30-36) % RDW (11.6-14.8) % Plt Count (150-400) X10^3/uL Neut % (Auto) (50-75) % Lymph % (Auto) (25-40) % [place] % (Auto) (3-14) % Eos % (Auto) (2-4) % Baso % (Auto) (0-2) % Neut # (Auto) (0117-9340) /uL Lymph # (Auto) (6618-2910) /uL [place] # (Auto) (0-900) /uL Eos # (Auto) (0-450) /uL Baso # (Auto) (0-100) /uL Sodium (137-145) mmol/L Potassium (3.4-5.1) mmol/L Chloride (98-107) mmol/L Carbon Dioxide (22-32) mmol/L BUN (7-17) mg/dL Creatinine (0.52-1.04) mg/dL Estimated GFR (>60) mL/min BUN/Creatinine Ratio (6-22) Glucose (70-100) mg/dL Lactate 2.9 H (0.7-2.1) mmol/L Calcium (8.4-10.2) mg/dL Total Bilirubin (0.2-1.3) mg/dL AST (14-36) IU/L ALT (<35) IU/L Alkaline Phosphatase (38-126) U/L Ammonia (9-30) umol/L Total Protein (6.3-8.2) g/dL Albumin (3.5-5.0) g/dL Globulin (1.7-4.1) g/dL Albumin/Globulin Ratio (1.0-2.8) Lipase (23-300) U/L Serum , Qual Negative (Negative) Ur Chlamydia DNA (PCR) Cancelled N gonorrhoeae DNA (PCR) Cancelled 03/06/23 Range/Units 19:25 WBC (4.5-11.0) X10^3/uL RBC (4.0-5.2) X10^6/uL Hgb (12.0-16.0) g/dL Hct (36-46) % MCV (80-100) fL MCH (26-34) PG MCHC (30-36) % RDW (11.6-14.8) % Plt Count (150-400) X10^3/uL Neut % (Auto) (50-75) % Lymph % (Auto) (25-40) % [place] % (Auto) (3-14) % Eos % (Auto) (2-4) % Baso % (Auto) (0-2) % Neut # (Auto) (8945-7333) /uL Lymph # (Auto) (1526-6585) /uL [place] # (Auto) (0-900) /uL Eos # (Auto) (0-450) /uL Baso # (Auto) (0-100) /uL Sodium (137-145) mmol/L Potassium (3.4-5.1) mmol/L Chloride (98-107) mmol/L Carbon Dioxide (22-32) mmol/L BUN (7-17) mg/dL Creatinine (0.52-1.04) mg/dL Estimated GFR (>60) mL/min BUN/Creatinine Ratio (6-22) Glucose (70-100) mg/dL Lactate 1.2 (0.7-2.1) mmol/L Calcium (8.4-10.2) mg/dL Total Bilirubin (0.2-1.3) mg/dL AST (14-36) IU/L ALT (<35) IU/L Alkaline Phosphatase (38-126) U/L Ammonia (9-30) umol/L Total Protein (6.3-8.2) g/dL Albumin (3.5-5.0) g/dL Globulin (1.7-4.1) g/dL Albumin/Globulin Ratio (1.0-2.8) Lipase (23-300) U/L Serum , Qual (Negative) Ur Chlamydia DNA (PCR) N gonorrhoeae DNA (PCR) Point of care testing: Urine Dip Bedside Urine Glucose Negative Bedside Urine Bilirubin - Negative Bedside Urine Ketone ++ 40 Urine Specific [place] 1.000 Bedside Urine Occult Blood - Negative Bedside Urine pH 8.0 Bedside Urine Protein - Negative Bedside Urine Urobilinogen - Negative Bedside Urine Nitrite - Negative Bedside Urine Leukocytes - Negative Esterase MDM Narrative Medical decision making narrative: 47-year-old female with significant abdominal pain on examination describes some recent chronic abdominal discomfort, patient has a prior history of VELASQUEZ. She describes something is going to explode. She is diaphoretic, tachycardic, not hypotensive but very painful. He really reproduce her pain on examination. Labs including lactate were included, CT abdomen pelvis showed maybe some pelvic congestion, patient was sent back for CT angio which does not show any acute vascular changes, once again notes pelvic congestion, pulmonary nodule. Patient did note she has had large ovarian cysts in the past after re-evaluation after several doses of pain medication and pelvic ultrasound was ordered does not show any acute change. Flow is not mentioned reaching out to radiology, spoke with Dr. Colten Sheffield, there is good flow. You read all [address], angio and pelvic ultrasound. There is intramural fibroid. Patient is much improved after fluids and some pain medication. She noted some discharge had patient self swab, waiting urine sample and repeat lactate. Patient signed out to Dr. Ballard while awaiting results. Dr Ballard: Received turned over. Review patient's history and physical and workup up to this part. Her ultrasound shows signs of pelvic congestion but no signs of ovarian torsion. CT scan shows no acute pathology. She does have a uterine fibroid. Her pelvic cultures do show clue cells which would be consistent with bacterial vaginosis. Patient does have a history of endometriosis. All these could potentially be the source of her abdominal pain although we do admit that her pain today seemed to be out of proportion to these types of diagnoses. There was no signs of ischemic bowel. After extended period of observation here in the ER patient states her pain has greatly improved but not completely resolved. She was given a dose of Flagyl to treat the bacterial vaginosis and a prescription was sent to the pharmacy of her choice. Advised that she talk with her nutrition educator and also her GI doctor and she was given return precautions. She expressed understanding and agreement. Discharge Plan Departure Patient Disposition: Home Clinical Impression: Abdominal pain, Bacterial vaginosis, Uterine fibroid Instructions: DI for Bacterial Vaginosis, DI for Abdominal Pain-Adult Activity Restrictions/Additional Instructions: I recommend that you contact your primary doctor for follow-up and also your nutrition educator provider and GI provider. Continue to take all of your medications as directed. Return to the emergency department for new symptoms. Prescriptions: New metronidazole 500 mg tablet 500 mg PO BID 7 Days Qty: 14 0RF dicyclomine 10 mg capsule 10 mg PO BID PRN (Reason: abdominal pain) Qty: 14 0RF No Action dronabinol 5 mg capsule 5 mg PO BEDTIME metronidazole 0.75 % gel 1 appful vaginal BEDTIME 5 Days Qty: 70 3RF cyclobenzaprine 5 mg tablet 5 mg PO PRN PRN (Reason: right side pain) oxycodone-acetaminophen 10-325 mg tablet Patient Comments: TAKE 1/2 TO 1 TABLET BY MOUTH TWICE DAILY ibuprofen 200 mg 200 mg PO PRN PRN (Reason: right side pain) Referrals: Sameer Navarro MD [Primary Care Provider] - Stand Alone Forms: Patient Portal/API
[2023-03-06] MEDS: ONDANSETRON 4 MG/2 ML INJ IV (17:26)
[2023-03-06] MEDS: SODIUM CHLORIDE 0.9% 1,000 ML 1000 ML IV (17:26)
[2023-03-06] MEDS: MORPHINE 4 MG/ML INJ IV (17:27)
[2023-03-06 17:36] LABS: Add Manual Diff / Slide Review NO; Basophils Absolute Auto 100 /uL (0-100); Basophils Percent Auto 0.8 % (0-2); Eosinophils Absolute Auto 200 /uL (0-450); Eosinophils Percent Auto 2.1 % (2-4); Hematocrit 42.1 % (36-46); Hemoglobin 14.3 g/dL (12.0-16.0); Lymphocytes Absolute Auto 3000 /uL (1100-4500); Lymphocytes Percent Auto 33.7 % (25-40); Mean Corpuscular Hemoglobin 29.3 PG (26-34); Monocytes Absolute Auto 400 /uL (0-900); Monocytes Percent Auto 4.5 % (3-14); Neutrophils Absolute Auto 5200 /uL (1500-7000); Neutrophils Percent Auto 58.9 % (50-75); Platelet Count 330 X10^3/uL (150-400); Red Blood Cell Count 4.89 X10^6/uL (4.0-5.2); Red Cell Distribution Width 12.8 % (11.6-14.8); White Blood Cell Count 8.9 X10^3/uL (4.5-11.0)
[2023-03-06 17:41] LABS: Alanine Aminotransferase 13 IU/L (<35); Albumin 5.3 g/dL (3.5-5.0); Albumin Globulin Ratio 1.4 (1.0-2.8); Alkaline Phosphatase 75 U/L (38-126); Aspartate Aminotransferase 29 IU/L (14-36); BUN Creatinine Ratio 20.7 (6-22); Bilirubin Total 0.8 mg/dL (0.2-1.3); Blood Urea Nitrogen 12 mg/dL (7-17); Calcium 10.5 mg/dL (8.4-10.2); Carbon Dioxide 22 mmol/L (22-32); Chloride 101 mmol/L (98-107); Estimated Glomerular Filt Rate > 60 mL/min (>60); Globulin 3.8 g/dL (1.7-4.1); Glucose 100 mg/dL (70-100); HEMOLYSIS 19 (0-50); Lipase 76 U/L (23-300); Potassium 3.8 mmol/L (3.4-5.1); Pregnancy Test Serum,Qual Negative (Negative); Sodium 139 mmol/L (137-145); Total Protein 9.1 g/dL (6.3-8.2)
[2023-03-06 17:42] LABS: Ammonia (NH3) < 9 umol/L (9-30)
[2023-03-06 17:44] LABS: Lactate (Lactic Acid) 2.9 mmol/L (0.7-2.1)
[2023-03-06] MEDS: HYDROMORPHONE 1 MG INJ IV ×2 (17:54→18:52)
--- NOTE | 2023-03-06 18:01 | DI.CT.S_ITS ---
PROCEDURE: CT ANGIO CHEST ABDOMEN PELVIS INDICATIONS: dissection protocol TECHNIQUE: Precontrast 5 mm thick sections acquired from the lung apices to the iliac crests. After the administration of intravenous contrast, 2.5 mm thick sections again acquired from the lung apices to the iliac crests. Maximum intensity projection (MIP) oblique sagittal and coronal reformats were then acquired. For radiation dose reduction, the following was used: automated exposure control. COMPARISON: [facility], CT, CT ABDOMEN PELVIS W CON, 03/06/2023, 17:33. FINDINGS: Image quality: Excellent. AORTA: No acute aortic syndrome or aneurysm. CHEST: Lungs and pleura: No acute airspace opacities. No pleural effusions or pneumothorax. Central and peripheral airways are patent and normal in caliber. 4 mm solid nodule in the lateral left upper lobe (series 6, image 176) Mediastinum: Heart size is normal. No pericardial effusion. No mediastinal or hilar adenopathy by size criteria. Central pulmonary arteries are normal in size. Esophagus is normal in caliber. No hiatal hernias. Bones and chest wall: No axillary adenopathy by size criteria. Thyroid gland is unremarkable . No suspicious bony lesions. No vertebral body compression fractures. ABDOMEN: Vasculature: Celiac trunk and mesenteric arteries are patent. Renal arteries are also patent. Dilated left gonadal vasculature. Solid organs: Liver is normal in size and enhancement. Gallbladder is unremarkable . Biliary system is non dilated. Pancreas enhances normally. Spleen is normal in size and enhancement. No adrenal nodules. Both kidneys are normal in size and enhancement, without hydronephrosis. Peritoneum and bowel: No free fluid or air. Bowel loops are normal in caliber and wall thickness. Nodes and vessels: No retroperitoneal or mesenteric adenopathy by size criteria. Inferior vena cava is normal in morphology. Miscellaneous: No ventral hernias. PELVIS: Genitourinary: Bladder wall thickness is normal. Miscellaneous: No inguinal hernias or adenopathy. No ventral hernias. Bones: No suspicious bony lesions. No vertebral body compression fractures. L5 pars defect. IMPRESSION: No evidence acute aortic syndrome. 4 mm solid nodule in the lateral left upper lobe. Consider 12 month follow-up if at high risk for developing lung cancer, per Fleischner Society guidelines. Dilated left gonadal vasculature, which can be seen in the setting of the clinical pelvic congestion syndrome. Dictated by: Colten Sheffield M.D. on 03/06/2023 at 18:43 Approved by: Colten Sheffield M.D. on 03/06/2023 at 18:47
--- NOTE | 2023-03-06 18:08 | DI.US.S_ITS ---
PROCEDURE: US PELVIC COMPLETE INDICATIONS: PELVIC PAIN TECHNIQUE: Real-time scanning was performed of the pelvic organs, with image documentation. Additional endovaginal scanning was necessary due to incomplete visualization of the adnexal and endometrial structures by transabdominal scanning. COMPARISON: None. FINDINGS: Uterus: Uterus is anteverted and normal in size at 6.9 x 3.1 x 3.7 cm. The myometrium is heterogeneous. The endometrium measures 5 mm combined thickness. Intramural fibroid along the midline, posterior margin measuring 9 mm. Ovaries: The right ovary measures 2.3 x 1.2 x 1.2 cm, with a calculated ovarian volume of 1.8 cc. The left ovary measures 1.7 x 1.1 x 1.5 cm, with a calculated ovarian volume of 1.5 cc. The ovaries have a normal sonographic appearance. Less than 12 follicles can be seen in each ovary. No adnexal masses are seen. Other: No pathologic free abdominal or pelvic fluid. IMPRESSION: Intramural fibroid measuring 9 mm, otherwise unremarkable pelvic ultrasound. We strive to produce accurate, complete, and clear reports of imaging services. To assist us in improving patient care, this report was composed using standard report templates and voice recognition software. Therefore, it may contain abnormal punctuation, insertions and/or omissions. Occasional wrong-word or sound-alike substitutions may occur. Though we review the report and make efforts to correct it, we do recommend that the report be read carefully in proper context to recognize any text inaccuracies. Dictated by: Colten Sheffield M.D. on 03/06/2023 at 18:56 Approved by: Colten Sheffield M.D. on 03/06/2023 at 18:58
[2023-03-06 19:31] LABS: Reflexed Lactate in 2 Hours Y
[2023-03-06 19:48] LABS: Lactate 2HR (Lactic Acid Rflx) 1.2 mmol/L (0.7-2.1)
[2023-03-06] MEDS: metroNIDAZOLE 500 MG TABLET PO (22:23)
[2023-03-09 02:06] LABS: Chlamydia trachomatis NAA Negative (Negative); Neisseria gonorrhoeae NAA Negative (Negative)
== END 2023-03-06 22:46 | disposition home or self-care (01) ==
PROVIDERS: Emergency Medicine; Emergency Provider Emergency Medicine; PCP Internal Medicine
DX: R10.2 Pelvic and perineal pain (principal); N76.0 Acute vaginitis; R00.0 Tachycardia, unspecified; D25.9 Leiomyoma of uterus, unspecified
CPT/HCPCS: 36415; 71275; 74174; 74177; 76830; 76856; 80053; 81003; 82140; 83605; 83690; 84703; 85025; 87040; 87070; 87205; 87210; 87491; 87591; 93975; 96361; 96374; 96375; 96376; 99284; J1170; J2270; J2405; Q9967

== ENCOUNTER → 2023-04-15 11:38 | Outpatient (CLI) | payer OTHER, SELFPAY ==
[2023-04-15 11:52] LABS: Specimen Label MYRIAD TEST KIT.
== END ==
PROVIDERS: PCP Internal Medicine; Referring Provider Obstetrics & Gynecology; Visit Provider Obstetrics & Gynecology
DX: Z13.89 Encounter for screening for other disorder (principal); Z80.41 Family history of malignant neoplasm of ovary
CPT/HCPCS: 36415